=== PATIENT | female | born 1985 | race Caucasian/White ===

== ENCOUNTER 2021-03-15 13:08 | Day surgery (SDC) | payer OTHER, SELFPAY ==
[2020-12-29 08:08] VITALS: BMI 27.4
[2021-03-15] VITALS (10 sets, daily range): BP systolic 98–121; BP diastolic 69–85; PULSE 69–82; RESP 14–16; TEMP 36.6–36.8; O2SAT 97–99; BMI 27.4
[2021-03-15 13:58] LABS: COVID19 -Nasal RAPID Negative (Negative)
[2021-03-15] MEDS: LACTATED RINGERS 1,000 ML 42 ML IV (14:57)
[2021-03-15] MEDS: ACETAMINOPHEN 325 MG TABLET 975 MG PO (15:11)
[2021-03-15] MEDS: GABAPENTIN 300 MG CAPSULE PO (15:12)
[2021-03-15] MEDS: SCOPOLAMINE 1 PATCH TOP (15:12)
--- NOTE | 2021-03-15 15:14 | PM.PREOP ---
Pre-operative Note COVID-19 COVID-19 status: Negative Result date/Date tested (Pos, Neg/Pending): 03/15/21 Interval Note History & Physical reviewed/Exam performed by Physician: Yes Changes to H&P: No
--- NOTE | 2021-03-15 15:56 | SUR.PREOP ---
Block start time [1548] . Monitoring initiated and maintained throughout procedure. Oxygen and medications given per anesthesiologist instructions. Patient remained stable throughout procedure, no adverse reactions noted. Block end time [1550].
[2021-03-15] MEDS: CEFAZOLIN 1 GM VIAL IV (16:04)
--- NOTE | 2021-03-15 16:07 | PM.PROC.1 ---
Procedures Date/Time Date of procedure: 03/15/21 Time of procedure: 15:50 Nerve Block Time out performed: Yes Local anesthetic used: bupivacaine 0.5% Location of anesthetic used: LEFT Nerve blocks: femoral Procedure successful: Yes Patient tolerated procedure: well and no complications Complications: none Additional comments: Femoral nerve block performed for post-op pain control at surgeon request. Patient was positioned with IV, O2, monitors and rescue meds available. Prepped and timeout performed. Target identified with continuous ultrasound guidance. 30mL of bupivicaine 0.5% was injected perineurally with intermittent aspiration and injection. No blood, no paresthesias, no acute complications. Ultrasound pic attained.
--- NOTE | 2021-03-15 16:21 | SUR.OPER ---
Supine on padded OR bed, head on pillow, arms secured on padded arm boards at <90 degrees abduction, legs uncrossed, safety belt at thigh, tape over blanket over lower right leg, left leg controlled by surgeon.
--- NOTE | 2021-03-15 17:43 | P.OP_ITS ---
Operative Date/Time/Diagnoses Date of procedure: 03/15/21 Time of procedure: 17:44 Pre-op diagnosis: Left patellar nonunion Post-op diagnosis: same Procedure & Clinicians Procedure: Open reduction internal fixation of left patella with bone grafting. Same procedure as scheduled: Yes Indications: The patient is a 35-year-old woman who has had an extended period of time after a patellar fracture with ongoing pain. She has been treated non operative with multiple attempts at physical therapy but has not seen satisfactory resolution of pain. A CT scan appears to show a residual crack at the fracture site. She is taken to the operating room for fixation of a patellar nonunion after discussion the risks benefits and alternatives. Risks d iscussed included but were not limited to: Failure to improve, stiffness, infection, nerve damage, deep venous thrombosis, pulmonary embolism, stroke, myocardial infarction, permanent paralysis and . Surgeon: Lucio Arias Click Yes if Unassisted: Yes Anesthesia Type: General and Peripheral nerve block Operative Notes Findings: Partial healing of patellar fracture. Closure Type: primary Specimen(s): none sent Prosthetic devices, grafts, tissues, transplants, or devices: Implanted were 2 4.0 mm cannulated partially-threaded screws and one 20 gauge cerclage wire. Applied: implant(s) Estimated Blood Loss (mL): 10 Blood products transfused: none Tourniquet time (min): 58 Procedure in detail: The patient was seen in the preoperative area where she confirmed the left leg was the operative site this was marked with my initials. She received preoperative antibiotics after being placed on the operating room table in a supine position. She underwent a general anesthetic. She underwent a femoral nerve block in the preoperative area prior to coming to the operating room. A tourniquet was placed about her proximal left thigh. The left leg was prepared from the toes the tourniquet in the usual fashion draped through sterile drapes. A appointment scheduler-out was performed prior to incision. Initially an approximately 6 cm incision was created in the midline overlying the patella. The periosteum on the anterior patella was elevated on the area of around the suspected fracture site. The fracture was identified. There was a small remaining crack but there did appear to be partial healing of the fracture with stability of the fracture fragment. Given the patient's ongoing symptoms I elected to perform bone grafting and fixation. An approximately 1 cm incision was created overlying the anteromedial tibia. A a 4 mm drill was used to create a cortical defect and several bites of bone graft were obtained using a pituitary rongeur. We then turned our attention back to the patellar wound. The fracture crack was curetted and bone graft implanted in the fracture crack. The periosteum was sewn closed over the bone graft. Two guide pins were then placed across the fracture from inferior to superior and were measured for length. Two cannulated screws were then placed after drilling. These were partially threaded screws and acted as lag screws to place and a note compression across the fracture. A 20 gauge cerclage wire was then threaded through the lumen of the screws in a [id number] fashion and tightened to provide additional fixation. The wire was tightened and the ends bent and buried to prevent irritation of the skin. The wounds were irrigated. The subcutaneous layers were closed with 3-0 Vicryl and the skin with a running 4-0 Monocryl. Steri-Strips were applied. The tourniquet was deflated during closure for total tourniquet time of 58 minutes. Dressings of 4x4s, cast padding and an Miguel wrap were applied the patient was transported to the recovery room in good condition having tolerated the procedure well. Complications: none Post-operative Condition: stable Disposition: PACU Plan for aftercare: The patient will be discharged today. She will be allowed to weight bear as tolerated. She will be initiated on physical therapy for anterior knee pain after approximately 4 weeks of gentle range of motion.
--- NOTE | 2021-03-15 17:53 | SUR.PHASEII ---
1723-patient arrives to pacu via gurney. awake. 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 1754-patient awake. conversing with staff appropriately. surgeon to bedside. questions invited and answered. states understanding. patient states pain tolerable. refuses pain meds.
--- NOTE | 2021-03-15 18:17 | SUR.PHASEII ---
discharge instructions given to patient. questions invited and answered. has rx at home. refuses pain meds. wishes to stay on tylenol only at this time. scopolomine instructions given. upon dressing, patient was standing on her non-operative leg and it gave out. she states this is not uncommon. patient gracefully landed on floor and caught self. denies hitting left knee on floor. denies increased pain. denies offer to stay in recovery to watch knee. again, over and over reiterated no weight bearing on left side. states right side weak as well in past. has walker at home for this reason.
== END 2021-03-15 18:25 | disposition home or self-care (01) ==
PROVIDERS: Referring Provider Orthopaedic Surgery; Visit Provider Orthopaedic Surgery
PROC: (CPT 27524; principal; 2021-03-15 15:15)
DX: S82.002G Unspecified fracture of left patella, subsequent encounter for closed fracture with delayed healing (principal); M25.862 Other specified joint disorders, left knee; Z20.822 Contact with and (suspected) exposure to COVID-19; F41.9 Anxiety disorder, unspecified
CPT/HCPCS: 20900; 27524; 64450; 81025; 87635; J0690; J1100; J2250; J2405; J2704